=== PATIENT | female | born 1990 | race Two or more races ===

== ENCOUNTER 2019-06-19 10:33 | Emergency (ER) | payer MEDICAID ==
[~2019-06-19] VITALS: Ht 160 cm; Wt 89.4 kg
[2019-06-19] MEDS ORDERED: KETOROLAC TROMETH 60MG/2ML VIAL IM ONE (11:45)
[2019-06-19 11:50] VITALS: BP 125/63
== END 2019-06-19 12:11 | disposition home or self-care (01) ==
LOC: ER 10:33
DX: M62.838 Other muscle spasm (principal); R51 Headache; Z90.49 Acquired absence of other specified parts of digestive tract; Z79.899 Other long term (current) drug therapy
CPT/HCPCS: 70450; 96372; 99284; J1885